=== PATIENT | male | born 1980 | race Hispanic/Latino ===

== ENCOUNTER 2016-11-11 12:27 | Outpatient (CLI) | payer SELFPAY | END 2016-11-11 12:28 | disposition home or self-care (01) | LOC: LABBT 12:27 | PROVIDERS: ATTEND Orthopaedic Surgery | DX: Z01.818 Encounter for other preprocedural examination (principal); S82.201D Unspecified fracture of shaft of right tibia, subsequent encounter for closed fracture with routine healing ==

== ENCOUNTER 2016-11-16 15:00 | Day surgery (SDC) | payer OTHER, SELFPAY ==
[2016-11-11 12:54] VITALS: BMI 19.7
[2016-11-16] MEDS ORDERED: Fentanyl 100 MCG/2 ML VIAL ONE ×2 (16:36→18:14)
[2016-11-16] MEDS ORDERED: Ondansetron HCl/PF 4 MG/2 ML Vial ONE (16:58)
[2016-11-16] MEDS ORDERED: Propofol 200 MG/20 ML VIAL ONE (16:58)
[2016-11-16] MEDS ORDERED: PHENYLEPHRINE-NS 100 MCG/ML 10 ML SYRINGE ONE (16:58)
[2016-11-16] MEDS ORDERED: Lidocaine 1% PF 5 ML VIAL ONE (16:58)
[2016-11-16] MEDS ORDERED: Dexamethasone 20 MG/5 ML VIAL ONE (16:58)
[2016-11-16] MEDS ORDERED: Ketorolac Tromethamine 30 MG/ML VIAL ONE (16:58)
[2016-11-16] MEDS ORDERED: HYDROcodone/Acetaminophen 10/325 mg Tablet ONE (18:58)
--- NOTE | 2016-11-17 01:25 | OP ---
DATE OF PROCEDURE: 11/16/2016 OPERATION: Irrigation and debridement of right leg wound with wound VAC placement. PREOPERATIVE DIAGNOSIS: Right open tibia fracture with necrotic skin. POSTOPERATIVE DIAGNOSIS: Right open tibia fracture with necrotic skin. COMPLICATIONS: None. ESTIMATED BLOOD LOSS: Minimal. SURGEON: Harsh Choe M.D. WINDOWS SYSTEM ADMIN: Mathieu García PA-C INDICATIONS: Mr. Arriaga is a 36-year-old male who sustained a severe grade 3 open right tibia fractu re. He has undergone intramedullary nail fixation as well as previous wound debridement and partial skin grafting. He has developed further necrotic skin and has been indicated for debridement of th e wounds with wound VAC placement to prevent further infection or other complication. Risks have be en reviewed in detail. He has elected to proceed with the operation. DESCRIPTION OF PROCEDURE: Mr. Arriaga was identified in the preoperative holding area. His correct e xtremity was marked. He was carried to the operating room. He was positioned supine. General anes thesia was induced. A multidisciplinary timeout was performed. The right lower extremity was prepp ed and draped in sterile fashion. We began the procedure with debridement of the patient's skin. He had several areas of necrotic ski n. We carefully removed these down to more viable appearing subcutaneous tissue. There was some de rmal layers in place as well as a full-thickness skin loss. We debrided the patient's wound entirel y. We removed all nonviable tissue. There was a segment of exposed bone over the proximal medial t ibia. This was a fragment which was free and avascular. This bone was removed given it was high in fection risk and was not helpful in healing his fracture. We thoroughly irrigated with copious lava ge at this point. Next, we placed several Prolene sutures to help cover the exposed bone and intram edullary nail. We mobilized the tissues from medial to anterior. We were able to cover the bone at this point. Next, we placed Adaptic gauze. We then placed our wound VAC sponges and our sealant dressing. We t hen applied our suction device. Wound VAC had a good seal. We placed an Jose wrap. The patient was then taken to the recovery room in good condition without complication.
== END 2016-11-16 19:45 | disposition home or self-care (01) ==
LOC: SDC 15:00
PROVIDERS: ATTEND Orthopaedic Surgery
PROC: 0J9N0ZX Drainage of Right Lower Leg Subcutaneous Tissue and Fascia, Open Approach, Diagnostic (ICD-10-PCS; principal; 2016-11-16)
DX: S82.201C Unspecified fracture of shaft of right tibia, initial encounter for open fracture type IIIA, IIIB, or IIIC (principal); Z79.82 Long term (current) use of aspirin; Z79.899 Other long term (current) drug therapy; Z98.890 Other specified postprocedural states; Z87.891 Personal history of nicotine dependence
CPT/HCPCS: 87070; 87205; 96374; J1100; J1885; J2001; J2270; J2405; J2704; J3010

== ENCOUNTER 2016-11-18 11:26 | Outpatient (CLI) | payer SELFPAY ==
[~2016-11-18 11:26] MED LIST: Lidocaine 4% Topical Sol 50 ML BOT ONE; Sodium Chloride 0.9% 15 ML NEB ONE
== END 2016-11-18 11:27 | disposition home or self-care (01) ==
LOC: WCC 11:26
PROVIDERS: ATTEND Family Medicine
DX: T81.89XD Other complications of procedures, not elsewhere classified, subsequent encounter (principal)
CPT/HCPCS: 97606; A4218; J2001

== ENCOUNTER 2016-11-22 11:20 | Outpatient (CLI) | payer SELFPAY ==
--- NOTE | 2016-11-22 13:40 | PRG ---
DATE OF SERVICE 11/22/2016 HISTORY: Mr. Russ Johnson is very pleasant 36-year-old gentleman who is being seen in the [facility] for a wound of the right anterior lower leg subsequent to split-thickness skin graft curtis cement to the right lower extremity on 10/21/[address] Harsh Choe. Since the patient's visit on 11/08/2016, Mr. Bart Johnson has undergone intraoperative irrigation and debridement with wound VAC placement by Dr. Harsh Choe on 11/16/2016. The patient has no complaints today . He denies any fever or chills. PHYSICAL EXAMINATION: VITAL SIGNS: Temperature 98.6, pulse 85, respirations 18, blood pressure 139/91. EXTREMITIES: Two wounds of the right anterior lower leg are present which measure approximately 3.5 x 2.5 cm and 5.2 x 4.5 cm. Granulation tissue is present within the margins of each wound. No pur ulent drainage is associated with either wound. No erythema of the skin surrounding either wound is present. No maceration of the skin of the periwound of either wound is noted. A dorsalis pedis pu lse is easily palpable on the right. No significant edema of the right lower leg is present on exam today. Tendon is exposed within the wound margins of the smaller ulceration. ASSESSMENT AND PLAN: Right anterior lower leg wound subsequent to split-thickness skin graft placem ent to the right lower extremity on 10/21/2016. As stated above, since the patient's visit on 11/08, Mr. Bart Johnson underwent intraoperative irrigation and debridement with the wound VAC place ment on 11/16/[address] Harsh Choe. Negative pressure therapy will be continued with d ressing changes of the wound VAC 2 times per week here in [facility]. The patient has a [place] appointment with Dr. Choe in 1 week. I will see Mr. Bart Johnson again in two weeks.
== END 2016-11-22 11:21 | disposition home or self-care (01) ==
LOC: WCC 11:20
PROVIDERS: ATTEND Family Medicine
DX: S81.801D Unspecified open wound, right lower leg, subsequent encounter (principal)
CPT/HCPCS: 97606